=== PATIENT | male | born 1960 | race Caucasian/White ===

== ENCOUNTER 2019-03-04 14:00 | Outpatient (RCR) | payer OTHER | END 2019-03-14 | disposition home or self-care (01) | LOC: MKS.ESL.PT | DX: T25.322D Burn of third degree of left foot, subsequent encounter (principal) ==

== ENCOUNTER 2019-06-20 14:00 | Outpatient (RCR) | payer OTHER | END 2019-06-28 | disposition home or self-care (01) | LOC: MKS.ESL.PT | DX: T25.422A Corrosion of unspecified degree of left foot, initial encounter (principal) ==